=== PATIENT | female | born 1950 | race Caucasian/White ===

== ENCOUNTER 2016-10-28 12:50 | Observation (INO) ==
[2016-10-28] MEDS ORDERED: NS 1,000 ML IV ONE (13:16)
[2016-10-28 14:03] LABS: MANUAL DIFF NEEDED? NO
[2016-10-28 14:07] LABS: ALLEN TEST YES; BE 6.7 mmoll (-3.0-3.0); BLOOD TYPE ARTERIAL; DRAW SITE L RADIAL; METHB 1.6 % (0.0-1.5); O2(CT) 12.8 mL/dL (15.0-23.0); PO2(98.6) 66 mmHg (60-100); SAMPLE BLOOD; SAO2 96.5 % (95.0-100.0); THB 9.7 g/dL (11.5-17.4); pH(98.6) 7.41 (7.35-7.45)
[2016-10-28 14:09] LABS: MODALITY ROOM AIR
[2016-10-28 14:13] LABS: BASO% 0.7 % (0.0-0.8); EOS# 0.57 X1000 (0.0-0.7); EOS% 6.4 % (0.0-10.0); HEMATOCRIT 30.1 % (37.0-47.0); HEMOGLOBIN 9.5 g/dL (12.0-16.0); IMM GRAN# 0.08 X1000 (0.0-0.04); IMM GRAN% 0.9 % (0.0-0.5); LYMPH# 1.71 X1000 (1.2-3.4); LYMPH% 19.2 % (20.5-51.1); MCH 31.6 PG (27-31); MCHC 31.6 g/dL (33-37); MONO# 0.86 X1000 (0.11-0.59); MONO% 9.7 % (1.7-9.3); NEUT% 63.1 % (42.2-75.2); PLT 251 X1000 (130-400); RBC 3.01 XMIL (4.2-5.4)
[2016-10-28 14:15] LABS: PCO2(98.6) 51 mmHg (35-45)
[2016-10-28 14:23] LABS: ALBUMIN 2.8 g/dL (3.5-5.0); CALCIUM 8.5 mg/dL (8.8-10.2); MAGNESIUM 2.1 mg/dL (1.5-2.7); POTASSIUM 3.1 mmol/L (3.5-5.1); TOTAL BILIRUBIN 0.37 mg/dL (0.20-1.00); TOTAL PROTEIN 5.5 g/dL (6.3-8.3)
[2016-10-28 14:26] LABS: INR 1.01; PROTIME 10.6 Seconds (9.2-11.7); PTT 25.2 Seconds (22.0-36.0)
--- NOTE | 2016-10-28 15:28 | Diag Imaging Result Document ---
PROCEDURE NAME: CHEST-PORTABLE - 10/28/2016 PORTABLE CHEST: COMPARISON: 04/29/2013. FINDINGS: Heart size appears the upper range of normal. There is mild prominence of central vascular markings, which appears to be chronic. There is mild subsegmental atelectasis at the left base. The lungs otherwise appear clear. There is no pleural effusion or pneumothorax identified. There are postsurgical changes noted at the junction of the cervical and thoracic spine. IMPRESSION: Upper normal heart size. Mild prominence of central vascular markings, which appears to be chronic. Mild subsegmental atelectasis at left base.
[2016-10-28] MEDS ORDERED: KLOR-CON PO ONE (16:46)
[2016-10-28] MEDS: NS 1,000 ML IV SCH (17:03)
--- NOTE | 2016-10-28 17:12 | PROVIDER DOCUMENTATION ---
This chart was entered by Sally Ovalle Scribe, acting as scribe for Leobardo Harding MD. HPI-Syncope/Dizziness - General Chief Complaint: Weakness Stated Complaint: generalized weakness Time Seen by Provider: 10/28/16 13:04 Source: patient Allergies/Adverse Reactions: Patient Allergies Allergy/AdvReac Type Severity Reaction Status Date / Time cephalexin monohydrate * Allergy RASH Verified 10/28/16 13:15 [From Keflex] - History of Present Illness-Syncope/Dizzy Nature of Presenting Problem: 66 yof presents to ed by ems with complaints of dizziness,pain, and weakness.pt states she began hurting and feeling dizzy this morning and could not manage pain. Ems states she had a post op surgery days ago and b/p low. Prior Episodes: reports: no prior history Onset/Duration: reports: this morning Timing: reports: still present Position/Activity at time of episode: reports: standing Symptoms prior to episode: reports: none Context: reports: felt faint Loss of Consciousness: no loss of consciousness Location of injury. (If syncope resulted in an injury.): reports: none Current Symptoms: reports: weakness, dizzy Recently Seen Here or By Another Healthcare Provider: No - Dizziness Severity in ED: reports: mild Dizziness Related Current/Associated Symptoms: reports: weakness Any recent trauma/injury?: reports: none Modifying Factors: improves with: nothing Patient usually:: reports: walks without assistance Review of Systems - Adult - REVIEW OF SYSTEMS - ADULT Constitutional: reports: fatique. denies: chills, fever Eyes: reports: no symptoms reported Ears, Nose, Mouth & Throat: reports: no symptoms reported Cardiovascular: reports: syncope (near). denies: chest pain, palpitations Respiratory: reports: no symptoms reported Gastrointestinal: denies: abdominal pain, nausea, vomiting Genitourinary: reports: no symptoms reported Musculoskeletal: reports: no symptoms reported Integumentary: reports: no symptoms reported Neurological: reports: dizziness/vertigo, syncope. denies: headache/migraines Psychiatric: reports: no symptoms reported Endocrine: reports: no symptoms reported Hematologic/Lymphatic: reports: no symptoms reported Allergic/Immunologic: reports: no symptoms reported All Other Systems: Reviewed and Negative Past History - Adult - PAST MEDICAL HISTORY-ADULT Review of Records: reports: Nursing Assessment Review, Medications Reviewed Cardiovascular: reports: HTN - PRIOR SURGERIES/PROCEDURES Surgical/Procedure History: reports: other (spinal) - IMMUNIZATION STATUS Childhood Immunizations: See Nurse Assessment Flu Vaccine: See Nurse Assessment - FAMILY HISTORY Family History: reviewed, not pertinent - SOCIAL HISTORY Smoking: non-smoker Living Situation: family Physical Exam-General - PHYSICAL EXAM-ADULT Initial Vital Signs Reviewed: Yes - CONSTITUTIONAL General Appearance: appears well, alert, no apparent distress - EYES Eyes: PERRL/EOMI, pink conjunctivae, fundi clear, no AV nicking - HEAD, EARS, NOSE, MOUTH & THROAT HENMT: normocephalic/atraumatic, moist mucous membranes, normal ENT inspection, TMs normal - RESPIRATORY Respiratory: chest non-tender, lungs clear, normal breath sounds, no pleuratic chest pain, no respiratory distress - CARDIOVASCULAR Cardiovascular: normal peripheral pulses, regular rate, rhythm, no edema, no gallop, no JVD - GASTROINTESTINAL (ABDOMEN) Abdominal Exam: normal bowel sounds, non tender, soft, no organomegaly, no pulsatile mass - LYMPHATIC Lymphatic: no adenopathy - MUSCULOSKELETAL Extremity: normal range of motion, non-tender, normal inspection, no pedal edema , no calf tenderness, normal capillary refill - SKIN Integumentary: normal color, normal turgor, warm/dry - NEUROLOGIC Neurologic: shop lead II-XII nml as tested, grossly normal, no motor/sensory deficits - PSYCHIATRIC Psych/Mental Status: normal mood/affect, normal thought content, normal thought process, oriented x 3 Progress - PLAN OF CARE/RESULTS Progress/Plan/Lab Results: Vital Signs - 8 hr 10/28/16 13:06 10/28/16 14:18 10/28/16 16:18 Temperature 98.3 F Pulse Rate 63 73 Respiratory Rate 17 19 Blood Pressure 82/50 95/56 97/58 O2 Sat by Pulse Oximetry 90 L 93 L Laboratory Results - last 24 hr 10/28/16 10/28/16 10/28/16 13:39 13:39 13:39 WBC 8.91 RBC 3.01 L Hgb 9.5 L Hct 30.1 L MCV 100.0 H MCH 31.6 H MCHC 31.6 L RDW Std Deviation 14.0 Plt Count 251 MPV 11.0 H Immature Gran % (Auto) 0.9 H Neut % (Auto) 63.1 Lymph % (Auto) 19.2 L [place] % (Auto) 9.7 H Eos % (Auto) 6.4 Baso % (Auto) 0.7 Immature Gran # (Auto) 0.08 H Neut # (Auto) 5.63 Lymph # (Auto) 1.71 [place] # (Auto) 0.86 H Eos # (Auto) 0.57 Baso # (Auto) 0.06 PT INR PTT (Actin FS) D-Dimer 1.13 H Specimen Type Sample Site pH pCO2 pO2 HCO3 Base Excess Oxyhemoglobin ABG O2 Sat (Calculated) ABG O2 Saturation ABG Carboxyhemoglobin ABG Methemoglobin Kirit Test Total Hemoglobin Lactate Blood Gas Modality Sodium 135 L Potassium 3.1 L Chloride 96 L Carbon Dioxide 28 Anion Gap 11 BUN 15 Creatinine 1.3 H Estimated GFR/1.73 m2 41 BUN/Creatinine Ratio 12 Glucose 108 H Calculated Osmolality 271 Calcium 8.5 L Magnesium 2.1 Total Bilirubin 0.37 AST 27 ALT 17 Alkaline Phosphatase 44 Creatine Kinase 112 Troponin T Uan-B-Cqjemazzmog Pept Total Protein 5.5 L Albumin 2.8 L Globulin 2.7 Albumin/Globulin Ratio 1.0 10/28/16 10/28/16 10/28/16 13:39 13:39 13:39 WBC RBC Hgb Hct MCV MCH MCHC RDW Std Deviation Plt Count MPV Immature Gran % (Auto) Neut % (Auto) Lymph % (Auto) [place] % (Auto) Eos % (Auto) Baso % (Auto) Immature Gran # (Auto) Neut # (Auto) Lymph # (Auto) [place] # (Auto) Eos # (Auto) Baso # (Auto) PT 10.6 INR 1.01 PTT (Actin FS) 25.2 D-Dimer Specimen Type Sample Site pH pCO2 pO2 HCO3 Base Excess Oxyhemoglobin ABG O2 Sat (Calculated) ABG O2 Saturation ABG Carboxyhemoglobin ABG Methemoglobin Kirit Test Total Hemoglobin Lactate Blood Gas Modality Sodium Potassium Chloride Carbon Dioxide Anion Gap BUN Creatinine Estimated GFR/1.73 m2 BUN/Creatinine Ratio Glucose Calculated Osmolality Calcium Magnesium Total Bilirubin AST ALT Alkaline Phosphatase Creatine Kinase Troponin T < 0.010 Yjn-G-Tvxzxpomubd Pept 218 Total Protein Albumin Globulin Albumin/Globulin Ratio 10/28/16 13:55 WBC RBC Hgb Hct MCV MCH MCHC RDW Std Deviation Plt Count MPV Immature Gran % (Auto) Neut % (Auto) Lymph % (Auto) La[place] % (Auto) Eos % (Auto) Baso % (Auto) Immature Gran # (Auto) Neut # (Auto) Lymph # (Auto) [place] # (Auto) Eos # (Auto) Baso # (Auto) PT INR PTT (Actin FS) D-Dimer Specimen Type ARTERIAL Sample Site L RADIAL pH 7.41 pCO2 51 H* pO2 66 HCO3 30.1 H Base Excess 6.7 H Oxyhemoglobin 93.5 L ABG O2 Sat (Calculated) 12.8 L ABG O2 Saturation 96.5 ABG Carboxyhemoglobin 1.60 ABG Methemoglobin 1.6 H Kirit Test YES Total Hemoglobin 9.7 L Lactate 0.70 Blood Gas Modality ROOM AIR Sodium Potassium Chloride Carbon Dioxide Anion Gap BUN Creatinine Estimated GFR/1.73 m2 BUN/Creatinine Ratio Glucose Calculated Osmolality Calcium Magnesium Total Bilirubin AST ALT Alkaline Phosphatase Creatine Kinase Troponin T Ryv-L-Sugmridhdpl Pept Total Protein Albumin Globulin Albumin/Globulin Ratio Orders Category Date Time Status Cardiac Monitoring DIRECTED Care 10/28/16 13:16 Active Saline Loc NOW Care 10/28/16 13:16 Active CHEST-PORTABLE [RAD] Stat Exams 10/28/16 13:16 Completed ABG [RESP] Routine Lab 10/28/16 13:55 Completed BLOOD CULTURE [BLDCUL] Stat Lab 10/28/16 13:39 Results CBC WITH ELECTRONIC DIFF [HEME] Stat Lab 10/28/16 13:39 Completed CK PROFILE [SP CHEM] Stat Lab 10/28/16 13:39 Completed COMPREHENSIVE METABOLIC PANEL [CHEM] Stat Lab 10/28/16 13:39 Completed D-DIMER [CHEM] Stat Lab 10/28/16 13:39 Completed MAGNESIUM [CHEM] Stat Lab 10/28/16 13:39 Completed PRO B-NATRIURETIC PEPTIDE Stat Lab 10/28/16 13:39 Completed PROTIME WITH INR [COAG] Stat Lab 10/28/16 13:39 Completed PTT [COAG] Stat Lab 10/28/16 13:39 Completed TROPONIN T Stat Lab 10/28/16 13:39 Completed UA NIMS W/REFLEX CULT [URINALYSIS] Stat Lab 10/28/16 13:16 Uncollected 0.9% Sodium Chloride Inj [Ns] 1,000 ml Med 10/28/16 13:16 Discontinued IV 999 mls/hr Potassium Chloride E.r. [Klor-Con] Med 10/28/16 16:46 Discontinued 40 meq PO NOW ONE EKG [EKG] Stat Ther 10/28/16 13:11 Ordered Venous U/S Bilateral Legs Stat Ther 10/28/16 16:46 Ordered Result Diagrams: 10/28/16 13:39 10/28/16 13:39 - REASSESSMENT Reassessment #1 Time Reassessed: 17:10 Status: improving (Pt is doing much better. BP=90s/60s. Pt has been taking her BP meds after the surgery, even though she has not been eating and drinking much. Will admit to Dr. Salinas) Departure - Departure Time of Disposition Decision: 17:11 DIAGNOSIS: Hypotension Qualifiers: Hypotension type: unspecified hypotension type Qualified Code(s): I95.9 - Hypotension, unspecified Post-operative complication Qualifiers: Surgical complication system/body Area: circulatory system Surgical complication type: unspecified Disposition: ADMITTED INPATIENT 09 Certified Medical Emergency: Emergent Condition: Stable Referrals and Follow-Ups: George Roca MD [Primary Care Provider] - This chart was documented by the indicated scribe, (Sally Ovalle Scribe) and accurately reflects the services I performed and decisions made by , Leobardo Harding MD, as attested by the provider's signature.
[2016-10-28 17:27] LABS: URINE CULTURE NEEDED? NO; URINE MICRO REVIEW NEEDED? NO; URINE SOURCE CATH
[2016-10-28 17:30] LABS: BILIRUBIN URINE NEGATIVE (NEGATIVE); BLOOD URINE NEGATIVE (NEGATIVE); COLOR YELLOW; GLUCOSE URINE NEGATIVE (NEGATIVE); LEUKOCYTES URINE NEGATIVE (NEGATIVE); NITRITE URINE NEGATIVE (NEGATIVE); PROTEIN URINE NEGATIVE (NEGATIVE); SP GRAVITY URINE 1.007; TURBIDITY URINE CLEAR (CLEAR); UR EPITHELIAL CELLS <10 /HPF (<10); URINE BACTERIA NEGATIVE /HPF; URINE RBC <10 /HPF (<10); URINE WBC <10 /HPF (<10); UROBILINOGEN URINE NORMAL (NORMAL)
[2016-10-28] MEDS ORDERED: ZOFRAN IV PRN (17:48)
[2016-10-28] MEDS: LOVENOX SUBQ SCH (19:04)
--- NOTE | 2016-10-28 19:13 | HISTORY AND PHYSICAL ---
PRIMARY CARE PHYSICIAN: Dr. George Roca. PRIMARY JUNIOR ELECTRICAL ENGINEER: Dr. Alonzo Moore. PRIMARY NEUROSURGEON: Dr. Ku from [facility]. CHIEF COMPLAINT: Generalized weakness and near-syncope. HISTORY OF PRESENT ILLNESS: This is a 66-year-old female with past medical history of hypertension, neck pain with recent surgery who was brought to the emergency department because of an episode of generalized weakness and also near-syncope. at bedside who provides most of the story. The patient had a recent neck fusion and a left carpal tunnel syndrome released surgically last week and she was discharged from [facility] on . Patient actually was doing fine according to her and last night and she took all of her blood pressure medication as usual. This morning around noon, her noticed her being less responsive. He started slapping her gently and patient was sleepy, so that happened for approximately 1 minute, maximum 2. Patient checked her blood pressure and at that time it read 50/30. was trying to help her to be more acting and continued tapping her face and finally because he was persistent in that situation, she called an ambulance and the patient was brought here to the emergency department. Here, she was found a little bit lethargic with blood pressure of 82/50. Apparently there is no sign of infection. Patient was not complaining of any cough. She denies any urinary tract infection symptoms. Apparently there were no major changes to her current medication and the pill that this patient took 1 hour before this episode happen is hydrocodone 7.5 mg. Patient now is being admitted for further evaluation and treatment as an observation for low blood pressure. She is also complaining of mild discomfort in the anterior chest wall, but she reported that this is something chronic that she attributes to her stay at [facility]. She did not describe any truly chest pain or chest discomfort. She denies any nausea and vomiting. PAST MEDICAL HISTORY: 1. Hypertension. 2. Neck pain. 3. Generalized osteoarthritis. 4. Polymyalgia rheumatica. Dr. Eisenberg is her primary workers compensation consultant and she is on chronic steroid therapy. 5. Aortic valve regurgitation. 6. Lumbar disk herniation. PAST SURGICAL HISTORY: 1. Cervical fusion x2. 2. Lumbar point fusion x1. 3. Carpal tunnel syndrome surgical repair in the left side. 4. Tubal ligation. 5. Cataract surgery. ALLERGIES: Patient is allergic to Keflex. SOCIAL HISTORY: Patient lives with . Denies smoking. She quit a few years ago. She denies drinking alcohol, just only socially. She does not use any illicit drugs. REVIEW OF SYSTEMS: 11 system reviewed and although the patient was not completely awake to provide more information, almost all symptoms are related to H P. PHYSICAL EXAMINATION: VITALS: Temperature 98.3 degrees, heart rate 63, respiratory rate 17, blood pressure 82/50. O2 saturation 3% on 2 L nasal cannula. GENERAL EXAMINATION: This is a 66-year-old chronically ill-looking female lying in bed, in no acute distress, using an [place] collar. HEENT: Head is normocephalic, atraumatic. Mucous membranes moist. NECK: Supple. The patient is using an [place] collar. No lymphadenopathy grossly or thyromegaly. CARDIOVASCULAR: S1, S2 heard. No murmurs, gallops, or rubs. Regular rate and rhythm. RESPIRATORY: Clear bilaterally to auscultation. No work of breathing or using accessory muscles. ABDOMEN: Soft, nontender to palpation. Bowel sounds present. No organomegaly. EXTREMITIES: Mild pedal edema, 1+ in both lower extremities. Peripheral pulses present in both legs. NEUROLOGICAL: Patient is a little bit sleepy, but easily arousable. Moves 4 extremities. LABORATORY DATA: Hemoglobin 9.5, hematocrit 30.1, platelets 251,000. ABG shows pH 7.41, PCO2 51. Potassium 3.1, creatinine 1.3. ASSESSMENT AND PLAN: 1. Near-syncope. 2. Chest discomfort. 3. Status post cervical fusion with [place] collar placed. 4. Mild kidney insufficiency. 5. Hypotension. 6. Aortic regurgitation. PLAN: 1. The patient is going to be admitted to the hospital as an admission because of low blood pressure. At this time, we do not know why this blood pressure has dropped. Of course, we are going to hold all antihypertensive medications here. Because she was complaining of vague chest discomfort, we are going to check enzymes, troponin 3 times. Also, we are going to restart all her home medications. 2. Further recommendations to follow according to the clinical situation with the patient. cc: Jt Cook MD
[2016-10-28] MEDS: NORCO-7.5 PO PRN (20:30)
[2016-10-28] MEDS: ROBAXIN PO SCH (20:31)
[2016-10-28] MEDS ORDERED: NEURONTIN PO SCH (21:00)
[2016-10-28] MEDS: NEURONTIN PO SCH (21:30)
[2016-10-28] MEDS: CRESTOR PO SCH (21:30)
[2016-10-28] MEDS: MIRAPEX PO SCH (21:40)
[2016-10-29] MEDS: NS 1,000 ML IV SCH ×4 (01:51→22:02)
[2016-10-29] MEDS: NORCO-7.5 PO PRN ×3 (05:26→22:10)
--- NOTE | 2016-10-29 05:55 | EKG Report ---
Test Performed on : 10/28/2016 1:16:31 PM Test Reason : weakness Blood Pressure : / mmHG Vent. Rate : 064 BPM Atrial Rate : 064 BPM P-R Int : 152 ms QRS Dur : 078 ms QT Int : 448 ms P-R-T Axes : 049 -14 027 degrees QTc Int : 462 ms Normal sinus rhythm. Low voltage QRS Nonspecific ST abnormality Abnormal ECG When compared with ECG of 25-JAN-2011 16:18, Vent. rate has decreased BY 36 BPM Unconfirmed Result
[2016-10-29] MEDS: PRILOSEC PO SCH (06:01)
[2016-10-29 07:12] LABS: MANUAL DIFF NEEDED? NO
[2016-10-29 07:19] LABS: BASO% 0.5 % (0.0-0.8); EOS# 0.58 X1000 (0.0-0.7); EOS% 6.9 % (0.0-10.0); HEMATOCRIT 33.7 % (37.0-47.0); HEMOGLOBIN 10.5 g/dL (12.0-16.0); IMM GRAN# 0.05 X1000 (0.0-0.04); IMM GRAN% 0.6 % (0.0-0.5); LYMPH# 1.35 X1000 (1.2-3.4); MCH 31.3 PG (27-31); MCHC 31.2 g/dL (33-37); MCV 100.3 FL (81-99); MONO# 0.92 X1000 (0.11-0.59); MONO% 10.9 % (1.7-9.3); MPV 10.8 FL (7.4-10.4); NEUT% 65.1 % (42.2-75.2); PLT 260 X1000 (130-400); RBC 3.36 XMIL (4.2-5.4)
[2016-10-29 07:43] LABS: CALCIUM 8.4 mg/dL (8.8-10.2); POTASSIUM 3.8 mmol/L (3.5-5.1)
[2016-10-29] MEDS: ASPIRIN EC PO SCH (09:21)
[2016-10-29] MEDS: ROBAXIN PO SCH ×2 (09:21→22:00)
[2016-10-29] MEDS: NEURONTIN PO SCH ×2 (09:21→22:01)
[2016-10-29] MEDS: MIRAPEX PO SCH ×2 (09:21→22:00)
[2016-10-29] MEDS: CELEXA PO SCH (09:22)
[2016-10-29] MEDS: PREDNISONE PO SCH (09:22)
--- NOTE | 2016-10-29 16:22 | PROGRESS NOTE ---
DATE: 10/29/2016 SUBJECTIVE: The patient reports feeling a little bit better but not completely back to her baseline. Denies any dizziness. Denies any headache or any nausea. OBJECTIVE: Vital Signs: Temperature 99.3 degrees, heart rate 86, respiratory rate 20, blood pressure 150/59, O2 saturation 98% on room air. General Examination: This is a chronically ill- looking, 66-year-old female lying in bed, in no acute distress. Wearing an [place] collar. HEENT: Head is normocephalic, atraumatic. Patient wearing a rigid cassie. No lymphadenopathy or thyromegaly noted. Cardiovascular: S1, S2 heard. No murmurs, gallops, or rubs. Regular rate and rhythm. Respiratory: Clear bilaterally to auscultation. No work of breathing or using accessory muscles. Abdomen: Soft, nontender to palpation. Bowel sounds present. No organomegaly. Extremities: Mild pitting edema 1+ in both lower extremities. Peripheral pulses present in both legs. Neurological: Patient is more alert and awake today. Moves 4 extremities. LABORATORY DATA: White cell count 8.46, hemoglobin 10.5, hematocrit 33.7, platelets 262,000. BMP unremarkable except mild elevation of creatinine 1.6. ASSESSMENT AND PLAN: 1. Near syncope. 2. Status post cervical fusion with [place] collar in place. 3. Acute kidney injury. 4. Hypertension. 5. Aortic regurgitation. 6. Pulmonary embolism suspected. PLAN: Patient was admitted to the hospital yesterday. She was just recently discharged 3 days ago from [facility] for neck fusion surgery and right carpal tunnel syndrome that was fixed surgically. The patient reports that she does not recall the episode but according to the was feeling dizzy and apparently she was less responsive so she was brought to the hospital and blood pressure at home before being brought to the hospital was found to be 50/30. Apparently, this patient, I am not sure if she was taking the correct doses of her blood pressure medications but the respirations as we mentioned were low so we started IV fluids on this patient. Also, because this patient was not tomorrow but in the next few days a V/Q scan will be ordered for possible PE. If the patient continues to improve clinically and V/Q scan is negative for PE, we are going to discharge this patient. We got a call from Ms. Ku nurse-practitioner from Neurosurgery and they are okay to let this patient remove the collar have a bath and they will check on the patient tomorrow. cc: Jt Cook MD
[2016-10-29] MEDS: LOVENOX SUBQ SCH (18:57)
--- NOTE | 2016-10-29 19:09 | Diag Imaging Result Document ---
PROCEDURE NAME: LUNG SCAN / VQ - 10/29/2016 STUDY: Ventilation perfusion nuclear medicine study. TECHNIQUE: 38 millicuries of DTPA used for ventilation imaging, 5.7 millicuries MAA administered intravenously for the perfusion images. Recent plain film used correlation. There are no wedge-shaped perfusion defects. Ventilation images are suboptimal, although there are no ventilation perfusion mismatches. IMPRESSION: No pulmonary emboli identified.
[2016-10-29] MEDS: CRESTOR PO SCH (22:01)
[2016-10-30] MEDS: NORCO-7.5 PO PRN ×2 (06:24→14:28)
[2016-10-30] MEDS: NS 1,000 ML IV SCH ×2 (06:24→12:27)
[2016-10-30] MEDS: PRILOSEC PO SCH (06:24)
[2016-10-30 06:29] LABS: MANUAL DIFF NEEDED? NO
[2016-10-30 06:36] LABS: BASO% 0.7 % (0.0-0.8); EOS# 0.32 X1000 (0.0-0.7); EOS% 4.2 % (0.0-10.0); HEMATOCRIT 33.5 % (37.0-47.0); HEMOGLOBIN 10.4 g/dL (12.0-16.0); IMM GRAN# 0.03 X1000 (0.0-0.04); IMM GRAN% 0.4 % (0.0-0.5); LYMPH# 2.04 X1000 (1.2-3.4); LYMPH% 26.7 % (20.5-51.1); MCH 31.3 PG (27-31); MCV 100.9 FL (81-99); MONO# 0.71 X1000 (0.11-0.59); MONO% 9.3 % (1.7-9.3); MPV 10.9 FL (7.4-10.4); NEUT% 58.7 % (42.2-75.2); PLT 279 X1000 (130-400); RBC 3.32 XMIL (4.2-5.4)
[2016-10-30 06:50] LABS: CALCIUM 8.1 mg/dL (8.8-10.2); POTASSIUM 3.6 mmol/L (3.5-5.1)
[2016-10-30] MEDS: MIRAPEX PO SCH (09:52)
[2016-10-30] MEDS: PREDNISONE PO SCH (09:52)
[2016-10-30] MEDS: NEURONTIN PO SCH (09:52)
[2016-10-30] MEDS: ROBAXIN PO SCH (09:52)
[2016-10-30] MEDS: ASPIRIN EC PO SCH (09:53)
[2016-10-30] MEDS: CELEXA PO SCH (09:53)
[2016-10-30] MEDS ORDERED: TOPROL XL PO SCH (12:15)
[2016-10-30] MEDS ORDERED: HYZAAR 50/12.5 MG PO SCH (12:15)
--- NOTE | 2016-10-30 13:19 | ECHO REPORT ---
ORDER DATE: 10/28/2016 INDICATION: Hypertension, chest discomfort, weakness, syncope. FINDINGS: 1. The right atrium appears normal size at 3.1 cm. 2. There is mild tricuspid regurgitation. RV systolic pressure of 42. 3. Normal RV size and systolic function. 4. No significant pulmonic insufficiency. 5. Normal left atrial size at 3.9 cm. 6. No mitral valve prolapse. Trace mitral regurgitation. 7. Normal LV size, end-diastolic dimension of 4.8. Suggestion of mild left ventricular hypertrophy. Posterior and interventricular septal wall thickness 1.2 and 1.1 cm respectively. Normal LV systolic function. Estimated EF is around 55%. Normal wall motion. 8. The aortic valve opens well. There is mild aortic insufficiency. The valve is trileaflet. 9. The aorta appears normal in visualized segments. 10. No pericardial effusion seen. cc: MD Jt Woodall MD
[2016-10-30 15:35] VITALS: BP 158/69
[2016-10-31] MEDS ORDERED: ADALAT CC PO SCH (09:00)
--- NOTE | 2016-10-31 15:16 | DISCHARGE SUMMARY ---
ADMISSION DATE: 10/28/2016 DISCHARGE DATE: 10/30/2016 CONSULTATIONS: None. PERTINENT PROCEDURES: 1. Echocardiogram showing EF of 55% with normal wall motion. 2. Chest x-ray showed upper normal size heart, mild prominence of central vascular markings which appear to be chronic, mild segmental atelectasis at the left base. 3. V/Q scan showed no pulmonary emboli. DISCHARGE DIAGNOSES: 1. Near syncope. The patient was recently discharged from [facility] for neck fusion surgery and right carpal tunnel syndrome that was fixed surgically. The patient's echocardiogram was normal. Her V/Q scan was negative for any PE. The patient has not had any more near syncope episodes since admission. The patient was also ambulated to check her room air saturations; they were normal. The patient has been advised to use her walker to get around and to change positions slowly. 2. Status post cervical fusion with [place] collar in place. She has been advised to follow up with the CONTINUOUS DRIER OPERATOR with Dr. Mercado, from Neurosurgery. 3. Acute kidney injury secondary to the patient's hypotension. This has improved with IV fluids. 4. Hypotension in a patient with normally hypertensive. Blood pressures at home on the day of her admission were 50/30, unsure if patient was taking correct doses of her blood pressure medicine; however, again, she has trended up to being hypertensive. She has been restarted back on her home medications. 5. Aortic regurgitation. Aware. 6. Pulmonary embolism ruled out with V/Q scan. HOSPITAL COURSE: Ms. Blount is a 66-year-old female with a past medical history of hypertension, neck pain with recent cervical fusion as well as carpal tunnel syndrome surgical repair on the left side, hypertension, neck pain, general osteoarthritis, polymyalgia rheumatica on chronic steroid therapy, aortica valve regurgitation, lumbar disc herniation. The patient was brought to the ED because of generalized weakness and near syncope. Her is here at the bedside and at the time of her admission provided most of her history. The patient recently had a neck fusion and left carpal tunnel syndrome release surgically last week and discharged from [facility] on . The patient was doing fine according to the . She took her blood pressure medications as usual, then around noon the patient's noticed her being less responsive. He said he started slapping her gently, she was sleepy. He checked her blood pressure and it was 50/30. He called the ambulance. She was brought to the ED where she was found to be lethargic with a blood pressure of 82/50. No signs of infection. Not complaining of any cough. No urinary tract infection symptom. No major changes in current medications other than a pill that she took an hour before the episode happened, which was hydrocodone 7.5. The patient was admitted for near syncope, started on IV fluids. Then she started complaining of some vague chest discomfort. Serial troponins were checked, which were negative. Echocardiogram revealed an EF of 55% with normal wall motion. A V/Q scan was also ordered to rule out PE. There was no pulmonary emboli identified. She also had an acute kidney injury; this is improved with IV fluids. Clinically, the patient has improved. She has been ambulated to check for her room air saturations. They have remained normal. The patient has been advised to continue with her [place] collar and to follow up with her CONTINUOUS DRIER OPERATOR with Dr. Mercado, her neurosurgeon to see when shecan take the C-collar off. She has been advised to continue to use her walker, to change positions slowly, and to be careful when taking pain medications. The patient's blood pressure has trended up into the 180s. She has been reinitiated back on her home medications. Dr. Duncan has assessed the patient. He feels that she is appropriate for discharge today. DISCHARGE VITAL SIGNS: Temperature is 98.1, heart rate 71, respirations 18, blood pressure is 153/70, O2 is 95% on room air. DISCHARGE DIET: Regular. DISCHARGE MEDICATIONS: 1. Aspirin 81 mg p.o. daily. 2. Lasix 40 mg p.o. daily. 3. Neurontin 600 mg p.o. b.i.d. 4. [place] 7.5/325 one each p.o. q.8h. p.r.n. 5. Losartan/hydrochlorothiazide 1 each p.o. daily. 6. Mobic 7.5 mg p.o. daily. 7. Robaxin 750 mg p.o. b.i.d. 8. Toprol XL 100 mg p.o. daily. 9. Procardia XL 50 mg p.o. daily. 10. Mirapex 0.125 mg p.o. b.i.d. 11. Prednisone 10 mg p.o. daily. 12.Crestor 20 mg p.o. at bedtime. 13. Dyazide 37.5 25 one each p.o. daily. FOLLOWUP: The patient is being discharged home with family. She can follow up with her primary care physician, Dr. George Roca, in 1 week. The patient will return to the ED if any worsening of her symptoms. DISCHARGE TIME: 30 minutes. Dictated by ALESSANDRO Zepeda for Ace Moses MD cc: MD Ace Carrera MD MTDD
--- NOTE | 2016-11-02 04:03 | Extremity Venous Study ---
PROCEDURE NAME: Venous U/S Bilateral Legs - 10/28/2016 STUDY: Bilateral lower extremity venous duplex study. REFERRING PHYSICIAN: Leobardo Harding MD READING PHYSICIAN: Derian Espinal MD TYPIST: [place] INDICATION: Shortness of breath, elevated D-dimer. Patient is postop neck surgery and carpal tunnel surgery. FINDINGS: The deep and superficial veins of both lower extremities were imaged throughout their course. All are compressible with forward flow. No thrombus is appreciated. Reflux is noted in the left common femoral and greater saphenous veins. INTERPRETATION: No evidence of deep or superficial venous thrombosis in either lower extremity and reflux disease as described above on the left. cc: Derian Espinal MD
== END 2016-10-30 17:30 | disposition home or self-care (01) ==
LOC: ED 12:50 → SUATTDRO 23:48 → INTOOBSV 23:48 → 3N 23:48
PROVIDERS: ATTEND Internal Medicine

== ENCOUNTER 2017-03-15 11:00 | Inpatient (IN) ==
[2017-03-15 12:36] LABS: MANUAL DIFF NEEDED? NO
[2017-03-15 12:37] LABS: URINE CULTURE NEEDED? NO; URINE MICRO REVIEW NEEDED? NO; URINE SOURCE CLEAN CATCH
[2017-03-15 12:41] LABS: BILIRUBIN URINE NEGATIVE (NEGATIVE); BLOOD URINE MODERATE (NEGATIVE); COLOR YELLOW; GLUCOSE URINE NEGATIVE (NEGATIVE); LEUKOCYTES URINE NEGATIVE (NEGATIVE); NITRITE URINE NEGATIVE (NEGATIVE); PH URINE 6.5; PROTEIN URINE 70 mg/dL (NEGATIVE); TURBIDITY URINE HAZY (CLEAR); UR EPITHELIAL CELLS >10 /HPF (<10); URINE BACTERIA NEGATIVE /HPF; URINE RBC <10 /HPF (<10); URINE WBC <10 /HPF (<10); UROBILINOGEN URINE NORMAL (NORMAL)
[2017-03-15 12:43] LABS: BASO% 0.6 % (0.0-0.8); EOS% 2.4 % (0.0-10.0); HEMATOCRIT 37.1 % (37.0-47.0); HEMOGLOBIN 11.9 g/dL (12.0-16.0); IMM GRAN# 0.02 X1000 (0.0-0.04); IMM GRAN% 0.2 % (0.0-0.5); LYMPH# 1.47 X1000 (1.2-3.4); LYMPH% 17.5 % (20.5-51.1); MCH 30.3 PG (27-31); MCHC 32.1 g/dL (33-37); MCV 94.4 FL (81-99); MONO% 7.1 % (1.7-9.3); MPV 11.3 FL (7.4-10.4); NEUT% 72.2 % (42.2-75.2); PLT 199 X1000 (130-400); RBC 3.93 XMIL (4.2-5.4)
--- NOTE | 2017-03-15 12:47 | ED EKG INTERP ---
This chart was entered by Amy Contreras Scribe, acting as scribe for Leobardo Harding MD. EKG Interpretation - EKG Time of EKG reading by physician:: 11:57 EKG Read and Signed by:: Leobardo Harding EKG Interpretation (*Must complete 3 of following elements*): Abnormal Rate: 63 (nonspecific st abnormality) Rhythm: NSR Attestation - Physician/ CAPRICE Attestation Patient care was provided by Advanced Practice Provider:: No The physician spent face to face time with patient:: Yes Advanced Practice Provider documentation review:: Supervising physician onsite and consulted in the evaluation and care of this patient. The physician did have a face to face encounter with the patient. This chart was documented by the indicated scribe, (Amy Contreras Scribe) and accurately reflects the services I performed and decisions made by meMehdi Wenli X, MD, as attested by the provider's signature.
[2017-03-15 12:54] LABS: INR 0.98; PROTIME 10.3 Seconds (9.2-11.7); PTT 24.6 Seconds (22.0-36.0)
[2017-03-15 13:47] LABS: ALBUMIN 4.1 g/dL (3.5-5.0); CALCIUM 9.3 mg/dL (8.8-10.2); MAGNESIUM 2.6 mg/dL (1.5-2.7); POTASSIUM 3.2 mmol/L (3.5-5.1); TOTAL BILIRUBIN 0.24 mg/dL (0.20-1.00); TOTAL PROTEIN 7.3 g/dL (6.3-8.3)
--- NOTE | 2017-03-15 13:50 | EKG Report ---
Test Performed on : 03/15/2017 11:57:09 AM Test Reason : Chest Pain Blood Pressure : / mmHG Vent. Rate : 063 BPM Atrial Rate : 063 BPM P-R Int : 174 ms QRS Dur : 088 ms QT Int : 452 ms P-R-T Axes : 067 -06 039 degrees QTc Int : 462 ms Normal sinus rhythm. Nonspecific ST abnormality Abnormal ECG When compared with ECG of 28-OCT-2016 13:16, No significant change was found Unconfirmed Result
--- NOTE | 2017-03-15 14:19 | PROVIDER DOCUMENTATION ---
HPI-General Adult - General Chief Complaint: Abnormal Lab[s] Stated Complaint: ABNORMAL LABS Time Seen by Provider: 03/15/17 13:42 Source: patient, family Allergies/Adverse Reactions: Patient Allergies Allergy/AdvReac Type Severity Reaction Status Date / Time cephalexin monohydrate * Allergy RASH Verified 10/28/16 13:15 [From Keflex] Home Medications: Home Medication List Medication Instructions Recorded Confirmed Last Taken Type Aspirin [Aspirin EC] 81 mg PO DAILY 10/28/16 10/28/16 10/27/16 History Citalopram [Celexa] 40 mg PO DAILY 10/28/16 10/28/16 10/27/16 History Gabapentin [Neurontin] 600 mg PO BID 10/28/16 10/28/16 10/28/16 11:00 History Hydrocodone/APAP 7.5 mg/325 mg 1 each PO Q8HR PRN 10/28/16 10/28/16 10/28/16 11: 00 History [[place]-7.5] Losartan/Hydrochlorothiazide 1 each PO DAILY 10/28/16 10/28/16 10/27/16 History [Hyzaar 100-25 Tablet] Meloxicam [Mobic] 7.5 mg PO DAILY 10/28/16 10/28/16 10/27/16 History Methocarbamol [Robaxin-750] 750 mg PO BID 10/28/16 10/28/16 10/28/16 11:00 History Metoprolol Succinate E.r. [Toprol 100 mg PO DAILY 10/28/16 10/28/16 10/27/16 History Xl] Nifedipine [Procardia Xl] 60 mg PO DAILY 10/28/16 10/28/16 10/27/16 History Pramipexole Di-HCl [Mirapex] 0.125 mg PO BID 10/28/16 10/28/16 10/27/16 History Prednisone 10 mg PO DAILY 10/28/16 10/28/16 10/27/16 History ROSUVAstatin [Crestor] 20 mg PO QHS 10/28/16 10/28/16 10/27/16 History - History of Present Illness -Gen Adult Nature of Presenting Problems: 67 y.o female with PMH of mod OA, HTN, recent spine surgery, UTI who is sent by PMD for abnormal kidney labs. Pt reports having generalized weakness, confusion , intermittent dyspnea, increase edema in the lower extremities for about 1 week. She denies chest pain, palpitations and GI problems. Pt reports getting over 3 UTIs. She recently completed a course of bactrim about 4 days ago. She denies any urinary frequency, urgency, dysuria, change in urinary output or color. Pt reports chronic back pain associated with her hx of spinal surgery. Her pain today is the same as baseline. Location of Pain/Injury: reports: back Pain Radiation: reports: no radiation Severity: reports: moderate Timing: reports: intermittent Modifying Factors: improves with: analgesics Associated Symptoms: reports: fatigue Similar Symptoms Previously?: Yes (hx of severe dehydration after surgery) Recently seen or treated by another doctor?: Yes (for UTI) Review of Systems - Adult - REVIEW OF SYSTEMS - ADULT Constitutional: reports: no symptoms reported Eyes: reports: no symptoms reported Ears, Nose, Mouth & Throat: reports: no symptoms reported Cardiovascular: reports: no symptoms reported Respiratory: reports: shortness of breath (occasional) Gastrointestinal: reports: no symptoms reported Genitourinary: reports: flank pain Musculoskeletal: reports: joint pain Integumentary: reports: no symptoms reported Neurological: reports: no symptoms reported Psychiatric: reports: no symptoms reported Endocrine: reports: no symptoms reported Hematologic/Lymphatic: reports: no symptoms reported Allergic/Immunologic: reports: no symptoms reported All Other Systems: Reviewed and Negative Past History - Adult - PAST MEDICAL HISTORY-ADULT Review of Records: reports: Old Records Reviewed Cardiovascular: reports: HTN Respiratory: reports: denies history Gastrointestinal: reports: denies history Musculoskeletal: reports: arthritis Psychiatric: reports: anxiety Endocrine/Immune: reports: denies history - PRIOR SURGERIES/PROCEDURES Surgical/Procedure History: reports: recent surgery (spinal fusion, carpal tunnel surgery), other (spinal) - IMMUNIZATION STATUS Childhood Immunizations: See Nurse Assessment Flu Vaccine: See Nurse Assessment - FAMILY HISTORY Family History: reviewed, not pertinent - SOCIAL HISTORY Smoking: denies Substance Use: none/never Physical Exam-General - PHYSICAL EXAM-ADULT Initial Vital Signs Reviewed: Yes - CONSTITUTIONAL General Appearance: alert, no apparent distress - EYES Eyes: PERRL/EOMI, pink conjunctivae - HEAD, EARS, NOSE, MOUTH & THROAT HENMT: normocephalic/atraumatic, moist mucous membranes, pharynx normal - NECK Neck: non-tender, supple - RESPIRATORY Respiratory: chest non-tender, lungs clear, normal breath sounds, no respiratory distress - GASTROINTESTINAL (ABDOMEN) Abdominal Exam: normal bowel sounds, non tender, no organomegaly, other ( central obesity) - MUSCULOSKELETAL Back Exam: no CVA tenderness, other (healed surgical scars lower cervical/upper thoracic and in lumbar regions) Extremity: pedal edema (+3 pitting edema to upper [place]) Progress - PLAN OF CARE/RESULTS Progress/Plan/Lab Results: Vital Signs - 8 hr 03/15/17 11:32 Temperature 97.9 F Pulse Rate 67 Respiratory Rate 18 Blood Pressure 101/51 O2 Sat by Pulse Oximetry 96 Laboratory Results - last 24 hr 03/15/17 03/15/17 03/15/17 11:49 11:49 11:49 WBC 8.40 RBC 3.93 L Hgb 11.9 L Hct 37.1 MCV 94.4 MCH 30.3 MCHC 32.1 L RDW Std Deviation 14.2 Plt Count 199 MPV 11.3 H Immature Gran % (Auto) 0.2 Neut % (Auto) 72.2 Lymph % (Auto) 17.5 L Ralls % (Auto) 7.1 Eos % (Auto) 2.4 Baso % (Auto) 0.6 Immature Gran # (Auto) 0.02 Neut # (Auto) 6.06 Lymph # (Auto) 1.47 Ralls # (Auto) 0.60 H Eos # (Auto) 0.20 Baso # (Auto) 0.05 PT INR PTT (Actin FS) Sodium 139 Potassium 3.2 L Chloride 95 L Carbon Dioxide 27 Anion Gap 17 BUN 55 H Creatinine 4.0 H Estimated GFR/1.73 m2 11 BUN/Creatinine Ratio 14 Glucose 100 Calculated Osmolality 293 Calcium 9.3 Magnesium 2.6 Total Bilirubin 0.24 AST 21 ALT 12 Alkaline Phosphatase 63 Creatine Kinase 139 Troponin T Vxw-R-Clhkmnjyjrl Pept 551 H Total Protein 7.3 Albumin 4.1 Globulin 3.2 Albumin/Globulin Ratio 1.3 Urine Source Urine Color Urine Turbidity Urine pH Ur Specific [place] Urine Protein Ur Glucose (Stick) Ur Ketones (Stick) Urine Blood Urine Nitrite Urine Bilirubin Urobilinogen Dipstick Urine Leukocytes Urine WBC (Auto) Urine RBC (Auto) U Epithel Cells (Auto) Urine Bacteria (Auto) 03/15/17 03/15/17 03/15/17 11:49 11:49 11:55 WBC RBC Hgb Hct MCV MCH MCHC RDW Std Deviation Plt Count MPV Immature Gran % (Auto) Neut % (Auto) Lymph % (Auto) Ralls % (Auto) Eos % (Auto) Baso % (Auto) Immature Gran # (Auto) Neut # (Auto) Lymph # (Auto) Ralls # (Auto) Eos # (Auto) Baso # (Auto) PT 10.3 INR 0.98 PTT (Actin FS) 24.6 Sodium Potassium Chloride Carbon Dioxide Anion Gap BUN Creatinine Estimated GFR/1.73 m2 BUN/Creatinine Ratio Glucose Calculated Osmolality Calcium Magnesium Total Bilirubin AST ALT Alkaline Phosphatase Creatine Kinase Troponin T < 0.010 Vak-O-Ubumpxevlrg Pept Total Protein Albumin Globulin Albumin/Globulin Ratio Urine Source CLEAN CATCH Urine Color YELLOW Urine Turbidity HAZY Urine pH 6.5 Ur Specific [place] 1.010 Urine Protein 70 A Ur Glucose (Stick) NEGATIVE Ur Ketones (Stick) NEGATIVE Urine Blood MODERATE A Urine Nitrite NEGATIVE Urine Bilirubin NEGATIVE Urobilinogen Dipstick NORMAL Urine Leukocytes NEGATIVE Urine WBC (Auto) <10 Urine RBC (Auto) <10 U Epithel Cells (Auto) >10 A Urine Bacteria (Auto) NEGATIVE Orders Category Date Time Status CBC WITH ELECTRONIC DIFF [HEME] Stat Lab 03/15/17 11:49 Completed CK PROFILE [SP CHEM] Stat Lab 03/15/17 11:49 Completed COMPREHENSIVE METABOLIC PANEL [CHEM] Stat Lab 03/15/17 11:49 Completed MAGNESIUM [CHEM] Stat Lab 03/15/17 11:49 Completed PRO B-NATRIURETIC PEPTIDE Stat Lab 03/15/17 11:49 Completed PROTIME WITH INR [COAG] Stat Lab 03/15/17 11:49 Completed PTT [COAG] Stat Lab 03/15/17 11:49 Completed TROPONIN T Stat Lab 03/15/17 11:49 Completed UA NIMS W/REFLEX CULT [URINALYSIS] Stat Lab 03/15/17 11:55 Completed EKG [EKG] Stat Ther 03/15/17 11:40 Draft Result Diagrams: 03/15/17 11:49 03/15/17 11:49 - REASSESSMENT Reassessment #1 Status: unchanged Departure - Departure Date of Disposition Decision: 03/15/17 Time of Disposition Decision: 14:54 DIAGNOSIS: Acute renal failure superimposed on stage 5 chronic kidney disease, not on chronic dialysis Qualifiers: Acute renal failure type: unspecified Qualified Code(s): N17.9 - Acute kidney failure, unspecified; N18.5 - Chronic kidney disease, stage 5 Disposition: ADMITTED INPATIENT 09 Certified Medical Emergency: Emergent Condition: Stable Additional Freetext Instructions: Spoke to Francia HOP STRAINER- Pt will be admitted under Dr Salians's service Referrals and Follow-Ups: George Roca MD [Primary Care Provider] - - Critical Care Note This patient required my direct & personal management of CC.: No Attestation - Physician/ CAPRICE Attestation Patient care was provided by Advanced Practice Provider:: Yes Advanced Practice Provider documentation review:: The Mid-level provider documentation, treatment plan and medical decision making was reviewed by the physician who agrees with all treatment and medical decision making by the MLP. The physician spent face to face time with patient:: Yes Advanced Practice Provider documentation review:: Supervising physician onsite and consulted in the evaluation and care of this patient. The physician did have a face to face encounter with the patient.
--- NOTE | 2017-03-15 15:53 | Diag Imaging Result Doc PS360 ---
EXAM: CHEST-2 VIEWS INDICATION: r/o pulm edema TECHNIQUE: 2 views COMPARISON: 10/28/2016 FINDINGS: There is minimal subsegmental atelectasis versus scarring projecting over the posterior lung bases on the lateral projection. The lungs are grossly clear, otherwise. There is no discrete pleural fluid collection or pneumothorax. The cardiomediastinal silhouette and central vasculature are grossly unremarkable. IMPRESSION: Minimal basilar atelectasis versus scarring. Electronically signed by Robinson Olmos 03/15/2017 3:51 PM
--- NOTE | 2017-03-15 16:29 | Diag Imaging Result Doc PS360 ---
EXAM: US RENAL 2 (RETROPER) COMPLETE INDICATION: sharona TECHNIQUE: COMPARISON: None. FINDINGS: The kidneys are grossly normal in echotexture with no discrete mass or hydronephrosis. The right kidney measures 10.3 cm and the left kidney measures 10.7 cm in the greatest longitudinal axes. Both renal cortices measure up to 0.9 cm in thickness. Urinary bladder is grossly unremarkable. IMPRESSION: Unremarkable renal ultrasound. Electronically signed by Robinson Olmos 03/15/2017 4:27 PM
[2017-03-15] MEDS: NS 1,000 ML IV SCH (17:50)
[2017-03-15 18:27] LABS: UR CREAT RANDOM 36.2 mg/dL (11-20)
[2017-03-15] MEDS ORDERED: ZOFRAN IV PRN (19:44)
[2017-03-15] MEDS ORDERED: NORCO-7.5 PO PRN (19:44)
[2017-03-15] MEDS ORDERED: TYLENOL PO PRN (19:44)
[2017-03-15 20:32] LABS: ALLEN TEST YES; BE 6.6 mmoll (-3.0-3.0); BLOOD TYPE ARTERIAL; DRAW SITE R RADIAL; METHB 1.1 % (0.0-1.5); MODALITY ROOM AIR; O2(CT) 15.9 mL/dL (15.0-23.0); PCO2(98.6) 44 mmHg (35-45); PO2(98.6) 61 mmHg (60-100); SAMPLE BLOOD; SAO2 95.3 % (95.0-100.0); THB 12.2 g/dL (11.5-17.4); pH(98.6) 7.46 (7.35-7.45)
--- NOTE | 2017-03-15 20:49 | HISTORY AND PHYSICAL ---
PRIMARY CARE PROVIDER: George Roca MD. CHIEF COMPLAINT: Elevated creatinine. HISTORY OF PRESENT ILLNESS: Ms. Sujata Blount is a 67-year-old morbidly obese, female, whose medical history is obstructive sleep apnea and will not wear her CPAP, hypertension, neck pain, osteoarthritis, polymyalgia rheumatica, AVR, lumbar disc herniation, who states that she had some preop labs obtained prior to having her right carpal tunnel repair which revealed an elevated creatinine, this was 1 week ago. The surgeon's nurse called her and told her to go see her primary, Dr. Roca, secondary to the elevated creatinine. She presented to Dr. Roca's office yesterday and had lab work drawn, and the BUN and creatinine was once again elevated at 52 and 3.9. She presents now with 55 and 4.0. He called her and told her to come for evaluation in the ER. About 2 weeks ago she was diagnosed with a urinary tract infection and was started originally on Macrodantin and then changed to Levaquin. She completed her antibiotics for that. She also took Lasix but this was stopped at one point in time and does have hydrochlorothiazide as another medication. Harmful renal medications could be her Mobic that she takes and possibly Robaxin. It also appears that she is taking possibly a double dose of hydrochlorothiazide. She takes Hyzaar and triamterene-hydrochlorothiazide. Other symptoms she has is dry skin, fatigue, urine is dark. She states that she has had lower extremity swelling for a year and that is why she takes diuretics. We will admit her to the medical floor and start her on IV fluid hydration, follow up with a renal ultrasound, do some urine studies and consult Nephrology. PAST MEDICAL HISTORY: Obstructive sleep apnea but does not wear CPAP, hypertension, neck pain, osteoarthritis, polymyalgia rheumatica that she takes chronic steroid therapy for, aortic valve regurgitation, lumbar disc herniation. PAST SURGICAL HISTORY: She has had cervical fusion x2, lumbar fusion x1, carpal tunnel bilaterally with the right most recently, tubal ligation, cataract surgery. SOCIAL HISTORY: Quit smoking 21 years ago but prior to that smoked half-pack per day for 20 years. Drinks a glass of red wine about once or twice every 2 weeks. Denies illicit drug use. She is and has 3 grown children. FAMILY HISTORY: Her mother and father both had heart disease and high blood pressure. Her brother had heart disease and required a permanent pacemaker. REVIEW OF SYSTEMS: Fourteen point review of systems were complete and all were negative except for those mentioned above in HPI. She did state that she also has a bad right knee and was wanting to get it looked at. Possibly schedule as outpatient. ALLERGIES: Cephalexin, monohydrate. HOME MEDICATIONS: Aspirin 81 mg p.o. daily; Celexa 40 mg p.o. daily; Neurontin 600 mg p.o. twice daily; [place] 7.5, 1 tab p.o. every 8 hours p.r.n.; Hyzaar 100-25, 1 tab p.o. daily; meloxicam 7.5 mg p.o. twice daily; Robaxin 750 mg p.o. twice daily; Toprol-XL 100 mg p.o. daily; Procardia 60 mg p.o. daily; Diastat 100,000 units p.o. daily; Mirapex 0.125 p.o. twice daily; prednisone 7.5 mg p.o. daily; Rosuvastatin 20 mg p.o. nightly; triamterene/hydrochlorothiazide 37.5/25 mg p.o. daily. PHYSICAL EXAMINATION: VITAL SIGNS: Temperature 97.9 degrees, heart rate 67, respiratory rate 18, blood pressure 101/51, O2 saturation is 96% on room air. 5 feet 2 inches tall, 198 pounds. BMI 36.2. GENERAL: Ms. Sujata Blount is a 67-year-old, female. She is in no acute distress. She is able to answer questions appropriately. HEENT: Atraumatic, normocephalic. Pupils equal, round, reactive to light. Extraocular movements are intact. Mucous membranes are dry. NECK: No JVD or carotid bruits noted. CARDIOVASCULAR: S1, S2. Regular rate and rhythm. No rubs, gallops, or murmurs. PULMONARY: Clear to auscultation. Bilateral breath sounds. No accessory muscle use or work of breathing noted. GASTROINTESTINAL: Soft, nontender, nondistended, obese, positive bowel sounds x4. EXTREMITIES: Trace lower extremity edema about +1, she has +2 dorsalis pedal and radial pulses. NEUROLOGIC: Alert and oriented x4. Moves all extremities equally. SKIN: Warm, dry, intact. LABORATORY DATA: White blood cells 8000, hemoglobin 11, hematocrit 37, platelet count 199,000, INR 0.98, PTT is 24.6. Sodium 139, potassium 3.2, BUN 55, creatinine 4.0, GFR is 11, glucose 100, calcium 9.3, magnesium 2.6, bilirubin 0.24. AST 21, ALT 12, CK 139, troponins less than 0.01, proBNP is 551, albumin 4.1. Urinalysis: 70 protein, moderate blood, otherwise negative. IMAGING: EKG at 11:40: Normal sinus rhythm, rate 63, QTc is 462. Renal ultrasound is unremarkable. Chest x-ray: Minimal basilar atelectasis versus scarring. ASSESSMENT AND PLAN: 1. Acute kidney injury. Stop all nephrotoxic medications. We will do IV fluid hydration. Renal ultrasound was unremarkable. Follow up with urinalysis and urine studies, and consult Dr. Bender for further recommendations. 2. Obstructive sleep apnea that is untreated. This could add to issues like kidney failure and hypertension. These will likely need to be re-evaluated as an outpatient. 3. Hypertension. We will continue only Toprol for now. 4. Polymyalgia rheumatica. We will continue steroid therapy. 5. Deep venous thrombosis prophylaxis. Heparin q.12 hours. 6. Gastrointestinal prophylaxis. Proton pump inhibitor. Dictated by ALESSANDRO Leahy for Jt Cook MD cc: ALESSANDRO Leahy MD Michael C. Donham, MD
[2017-03-15] MEDS: MIRAPEX PO SCH (23:12)
[2017-03-15] MEDS: HEPARIN SUBQ SCH (23:12)
[2017-03-15] MEDS: NEURONTIN PO SCH (23:13)
[2017-03-16] MEDS: NS 1,000 ML IV SCH ×4 (03:40→17:52)
[2017-03-16 05:57] LABS: MANUAL DIFF NEEDED? NO
[2017-03-16 06:00] LABS: BASO% 0.6 % (0.0-0.8); EOS# 0.41 X1000 (0.0-0.7); EOS% 6.1 % (0.0-10.0); HEMATOCRIT 33.4 % (37.0-47.0); HEMOGLOBIN 10.6 g/dL (12.0-16.0); LYMPH# 2.18 X1000 (1.2-3.4); LYMPH% 32.3 % (20.5-51.1); MCH 30.2 PG (27-31); MCHC 31.7 g/dL (33-37); MCV 95.2 FL (81-99); MONO# 0.69 X1000 (0.11-0.59); MONO% 10.2 % (1.7-9.3); MPV 11.2 FL (7.4-10.4); NEUT% 50.8 % (42.2-75.2); PLT 181 X1000 (130-400); RBC 3.51 XMIL (4.2-5.4)
[2017-03-16 06:11] LABS: INR 1.01; PROTIME 10.6 Seconds (9.2-11.7); PTT 25.2 Seconds (22.0-36.0)
[2017-03-16 06:26] LABS: ALBUMIN 3.1 g/dL (3.5-5.0); CALCIUM 8.5 mg/dL (8.8-10.2); MAGNESIUM 2.4 mg/dL (1.5-2.7); POTASSIUM 2.8 mmol/L (3.5-5.1); TOTAL BILIRUBIN 0.16 mg/dL (0.20-1.00); TOTAL PROTEIN 5.7 g/dL (6.3-8.3)
[2017-03-16] MEDS: MIRAPEX PO SCH ×2 (08:59→23:32)
[2017-03-16] MEDS ORDERED: PROCARDIA ER PO SCH (09:00)
[2017-03-16] MEDS ORDERED: MYCOSTATIN SUSP PO PRN (09:00)
[2017-03-16] MEDS: NEURONTIN PO SCH ×2 (09:00→23:32)
[2017-03-16] MEDS ORDERED: TOPROL XL PO SCH (09:00)
[2017-03-16] MEDS: PREDNISONE PO SCH (09:00)
[2017-03-16] MEDS: ASPIRIN EC PO SCH (09:00)
[2017-03-16] MEDS: HEPARIN SUBQ SCH ×2 (09:01→23:32)
--- NOTE | 2017-03-16 11:14 | PROGRESS NOTE ---
DATE: 03/16/2017 SUBJECTIVE: Patient reports feeling fine. Reports some mild pain in the hands, on the back that patient attributes to his chronic osteoarthritis. OBJECTIVE: Vital Signs: Temperature 98.8 degrees, heart rate 62, respiratory rate 16, blood pressure 93/51 and O2 saturation 94% on room air. General examination: This is a 67-year-old female, lying in bed in no acute distress. HEENT: Head is normocephalic, atraumatic. Anicteric sclerae and pale conjunctivae. Mucous membranes are moist. Neck: Supple. No JVD noted. No carotid bruits. No lymphadenopathy. No thyromegaly. Cardiovascular exam: S1, S2 heard. No murmurs, gallops, or rubs. Regular rate and rhythm. Respiratory exam: Clear bilaterally to auscultation. No work of breathing or using accessory muscles. Abdomen: Soft, nontender to palpation. Bowel sounds present. No organomegaly. Extremities: No clubbing or cyanosis and edema 1+ over both lower extremities. Peripheral pulses present in both legs. Neurological exam: Patient alert and oriented x3. Moves 4 extremities. LABORATORY DATA: The CBC is unremarkable, except mild anemia at 10.6 and potassium 2.8 and creatinine 2.9. ASSESSMENT AND PLAN: 1. Acute kidney injury. That condition is improving. Yesterday, the creatinine was 5.0 and today is 2.9. Patient has been started on intravenous fluids and all nephrotoxic medications have been stopped including Meloxicam, which this patient was taking for about a year and also losartan. Renal ultrasound was ordered at admission and was unremarkable. Dr. Bender from nephrology has been consulted; we will follow his recommendations. 2. Obstructive sleep apnea, aware. 3. Hypertension. Because the blood pressure is borderline low, we prefer to hold all blood pressure medications. 4. Polymyalgia rheumatica. Will continue with the prednisone 7.5 oral daily. 5. Deep vein thrombosis prophylaxis with heparin. 6. Gastrointestinal prophylaxis with Protonix. cc: Jt Cook MD
[2017-03-16] MEDS: POTASSIUM CHLORIDE 60 MEQ in NS 500 ML IV SCH ×2 (12:58→23:31)
--- NOTE | 2017-03-16 13:59 | CONSULTATION ---
DATE OF CONSULTATION: 03/16/2017 REASON FOR CONSULTATION: Acute kidney injury. HISTORY OF PRESENT ILLNESS: Ms. Blount is a 67-year-old, white female with multiple medical problems including hypertension, diabetes, obstructive sleep apnea, history of PMR on chronic steroids. She has aortic valve disease as well. She had surgery less than 1 week ago for right carpal tunnel syndrome by Dr. Ku in [place]. She states she really was not eating all that well, even at that time, and attributes this to a urinary tract infection that she has been experiencing for a couple weeks. She was treated first with Macrodantin and then with Levaquin. Following surgery, she continued to have a low appetite and occasional nausea, but no vomiting and no diarrhea. No chills, fever, sweats, night sweats, etc. She had progressive weakness and perhaps orthostasis, so she sought attention with Dr. Roca. She was weak and pale and he luz labs on her, and then called her and asked her to come to the hospital because her creatinine was 3.9. The admission H and P says that her creatinine was abnormal prior to her surgery as well. I do not have access to those data. Baseline creatinine was 1.1 as of October of this year. Since admission she has been treated with IV fluid resuscitation. She has a Schilling catheter in place and she has undergone a renal ultrasound which demonstrated normal size kidneys and no obstruction. Her urine output has been excellent with 1.4 L total urine output as of 8 a.m. Her losartan and hydrochlorothiazide have been withheld. PAST MEDICAL HISTORY: As above. HOME MEDICATIONS: 1. Aspirin. 2. Celexa. 3. Neurontin. 4. [place]. 5. Hyzaar. 6. Meloxicam. 7. Robaxin. 8. Toprol. 9. Procardia. 10. Diastat. 11. Mirapex. 12. Prednisone. 13. Rosuvastatin. 14. Triamterene/hydrochlorothiazide. ALLERGIES: Cephalexin. SOCIAL HISTORY: Former smoker. Occasional alcohol. She is and lives with her . FAMILY HISTORY: Noncontributory. REVIEW OF SYSTEMS: Otherwise negative, except for musculoskeletal complaints and thrush. PHYSICAL EXAMINATION: Vital Signs: Blood pressure 90/48, heart rate 70, respiration 18, afebrile. General: She is an obese woman in no acute distress. Skin: Warm and dry. Eyes: Conjunctivae are pink and moist. Pupils are equal. No corneal arcus. ENT: Oropharynx is clear. Tongue is beefy, but no plaques. Normal dentition. Neck: Supple. Trachea is midline. Jugular venous wave is not distended. Heart: Regular. I did not discern a murmur. No gallops. Lungs: Have equal breath sounds. No crackles or wheezes. No accessory muscle use or retractions. Abdomen: Obese and soft. Bowel sounds are present. No organomegaly or masses or bruits. Extremities: Have no edema, clubbing, or cyanosis. Intact distal pulses. Neurologic Exam: Grossly nonfocal. IMPRESSION: Acute kidney injury. Creatinine is improving promptly with the withdrawal of her nonsteroidal anti-inflammatory drug and her diuretic and her Cozaar. I would recommend withholding all those medicines for maybe 2-3 weeks until her other symptoms are improved. Her other blood pressure medications are appropriately on hold as well. I expect her to have progressive improvement in her renal function as her volume resuscitation proceeds. She has potassium chloride in her intravenous fluids and this appropriate for addressing her hypokalemia. cc: Miguel A Bender MD
[2017-03-17] MEDS: NS 1,000 ML IV SCH ×2 (01:16→09:03)
[2017-03-17] MEDS: MIRAPEX PO SCH ×2 (09:01→19:53)
[2017-03-17] MEDS: NEURONTIN PO SCH ×2 (09:01→19:53)
[2017-03-17] MEDS: PREDNISONE PO SCH (09:02)
[2017-03-17] MEDS: ASPIRIN EC PO SCH (09:03)
[2017-03-17] MEDS: HEPARIN SUBQ SCH ×2 (09:03→19:53)
[2017-03-17 10:03] LABS: MANUAL DIFF NEEDED? NO
[2017-03-17 10:14] LABS: BASO% 0.9 % (0.0-0.8); EOS# 0.35 X1000 (0.0-0.7); EOS% 4.7 % (0.0-10.0); HEMATOCRIT 33.7 % (37.0-47.0); HEMOGLOBIN 10.6 g/dL (12.0-16.0); IMM GRAN# 0.02 X1000 (0.0-0.04); IMM GRAN% 0.3 % (0.0-0.5); LYMPH# 2.53 X1000 (1.2-3.4); LYMPH% 34.3 % (20.5-51.1); MCH 30.1 PG (27-31); MCHC 31.5 g/dL (33-37); MCV 95.7 FL (81-99); MONO# 0.65 X1000 (0.11-0.59); MONO% 8.8 % (1.7-9.3); MPV 10.7 FL (7.4-10.4); PLT 186 X1000 (130-400); RBC 3.52 XMIL (4.2-5.4)
[2017-03-17 10:32] LABS: ALBUMIN 3.2 g/dL (3.5-5.0); CALCIUM 8.8 mg/dL (8.8-10.2); POTASSIUM 3.1 mmol/L (3.5-5.1)
[2017-03-17 10:34] LABS: CALCIUM 8.7 mg/dL (8.8-10.2); POTASSIUM 3.2 mmol/L (3.5-5.1)
[2017-03-17] MEDS ORDERED: POTASSIUM CHLORIDE 60 MEQ in NS 500 ML IV ONE (12:00)
--- NOTE | 2017-03-17 13:30 | PROGRESS NOTE ---
DATE: 03/17/2017 SUBJECTIVE: Patient reports feeling fine. Mild pain in both hands, on the back. Denies fevers or chills. OBJECTIVE: Vital Signs: Temperature 98.7 degrees, heart rate 96, respiratory rate 18, blood pressure 130/57, O2 saturation 96% on room air. General: This is a 67-year-old female lying in bed, in no acute distress. HEENT: Head is normocephalic, atraumatic. Anicteric sclerae, pale conjunctivae. Mucous membranes dry. Neck: Supple. No JVD noted. No carotid bruits. No lymphadenopathy. No thyromegaly. Cardiovascular: S1, S2 heard. No murmurs, gallops, or rubs. Regular rate and rhythm. Respiratory: Clear bilaterally to auscultation. No work of breathing or using accessory muscles. Abdomen: Soft. Nontender to palpation. Bowel sounds present. No organomegaly. Extremities: No clubbing, cyanosis, or edema. Peripheral pulses present in both legs. Neurological: Patient is alert and oriented x3. Moves 4 extremities. LABORATORY DATA: White cell count 7.38, hemoglobin 10.6, hematocrit 33.7, platelets 186,000. Sodium 148, potassium 3.2, chloride 106, bicarbonate 28, creatinine is 2.0, BUN 29. ASSESSMENT AND PLAN: 1. Acute on chronic kidney disease. This condition continues to improve. Creatinine has improved from 2.9 yesterday to 2.0 today. We will continue with IV fluids and continue holding all nephrotoxic medication including meloxicam. Dr. Bender has evaluated this patient. 2. Obstructive sleep apnea. Aware. 3. Hypertension. Blood pressure is in the range of 110-130 so we will continue to hold all blood pressure medications. 4. Polymyalgia rheumatic. We will continue with prednisone of 7.5 mg daily. 5. Deep vein thrombosis prophylaxis with heparin. 6. Gastrointestinal prophylaxis with Protonix. cc: Jt Cook MD
[2017-03-17] MEDS: CRESTOR PO SCH (19:53)
[2017-03-18] MEDS: NS 1,000 ML IV SCH ×2 (00:08→02:39)
[2017-03-18] MEDS: CRESTOR PO SCH (00:08)
[2017-03-18] MEDS: HEPARIN SUBQ SCH ×2 (00:08→08:06)
[2017-03-18] MEDS: NEURONTIN PO SCH ×2 (00:09→08:06)
[2017-03-18] MEDS: MIRAPEX PO SCH ×2 (00:09→08:07)
[2017-03-18 05:36] LABS: MANUAL DIFF NEEDED? NO
[2017-03-18 05:52] LABS: BASO% 0.6 % (0.0-0.8); EOS# 0.32 X1000 (0.0-0.7); EOS% 4.1 % (0.0-10.0); HEMATOCRIT 32.4 % (37.0-47.0); HEMOGLOBIN 10.3 g/dL (12.0-16.0); LYMPH% 35.6 % (20.5-51.1); MCH 30.3 PG (27-31); MCHC 31.8 g/dL (33-37); MCV 95.3 FL (81-99); MONO# 0.68 X1000 (0.11-0.59); MONO% 8.7 % (1.7-9.3); PLT 184 X1000 (130-400)
[2017-03-18 06:01] LABS: ALBUMIN 3.2 g/dL (3.5-5.0); CALCIUM 8.1 mg/dL (8.8-10.2); POTASSIUM 3.2 mmol/L (3.5-5.1)
[2017-03-18] MEDS ORDERED: KLOR-CON PO ONE (07:18)
--- NOTE | 2017-03-18 07:19 | EKG Report ---
Test Performed on : 03/16/2017 06:44:34 AM Test Reason : chest pain Blood Pressure : / mmHG Vent. Rate : 062 BPM Atrial Rate : 062 BPM P-R Int : 174 ms QRS Dur : 090 ms QT Int : 442 ms P-R-T Axes : 093 -13 028 degrees QTc Int : 448 ms Normal sinus rhythm. Normal ECG When compared with ECG of 15-MAR-2017 11:57, (Unconfirmed) Nonspecific ST and T wave abnormality precordial leads Confirmed by Ryan Schmitt DO ([id number]) on 03/18/2017 6:20:20 PM
[2017-03-18 07:40] VITALS: BP 130/71
[2017-03-18] MEDS: ASPIRIN EC PO SCH (08:07)
[2017-03-18] MEDS: PREDNISONE PO SCH (08:07)
[2017-03-18] MEDS ORDERED: CELEXA PO SCH (09:00)
--- NOTE | 2017-03-18 13:33 | PROGRESS NOTE ---
DATE: 03/18/2017 DATE SEEN: 03/18/2017 TIME SEEN: 08:35 SUBJECTIVE: Ms. Blount is resting quietly in bed. She states that she hopes to go home today. She denies any chest pain or increased work of breathing. OBJECTIVE: Vital Signs: Her most recent vital signs are temperature 98.1 degrees blood pressure 135/68, heart rate 57, respirations 16. She is on room air. Last recorded saturation 96%. She has had 2520 in, 2100 out per Schilling catheter. LABORATORY DATA: Sodium 143, potassium 3.2, chloride 107. CO2 26, BUN 26, creatinine 1.8. Glucose 75. Anion gap 10, calcium 8.1, phosphorus 2.7, albumin 3.2. White count 7.86. Hemoglobin 10.3, hematocrit 32.4, with a platelet count of 184,000. PHYSICAL EXAMINATION: General: This is a 67-year-old white female. She is currently resting in bed. She is in no acute distress. Skin: Warm and dry. HEENT: Normocephalic , atraumatic. Conjunctiva is pale. She has MARITA. Mucous membranes moist. Neck: Supple. Trachea midline. No jugular venous distention. Cardiovascular: Regular rate and rhythm. She is without murmur or gallop. Lungs: Clear to auscultation anteriorly. Equal excursion on room air. Abdomen: Large, round, soft, and nontender. Positive bowel sounds. Genitourinary: Schilling catheter is in place. Not inspected. Adequate urine out. Extremities: No edema. No clubbing or cyanosis. Neurological: Alert and oriented x3. ASSESSMENT AND PLAN: 1. Acute kidney injury. Patient's baseline creatinine is unknown. She has responded nicely to IV fluids of normal saline at 125 mL an hour. BUN and creatinine are down to 26 and 1.8, respectively. The patient states that she would like to go home. We had indicated that she is to go home without her losartan. We will follow up in 2-3 weeks after her discharge and possibly start her losartan back at that time for her kidney protection and blood pressure support. No indications for intervention. 2. Electrolytes. Patient has mild hypokalemia. Requires probably 1 dose of potassium prior to discharge. 3. Acid-base balance. This is stable. 4. Anemia. This is low, but stable. I would like to thank you for allowing us to follow with this patient. Dictated by ALESSANDRO Aquino for Miguel A Bender MD Patient seen, data reviewed, discussed with Kristi Canales on 03/18/17. I agree with the above assessment and plan of care. cc: ALESSANDRO Aquino MD [facility]
--- NOTE | 2017-03-19 06:52 | DISCHARGE SUMMARY ---
ADMISSION DATE: 03/15/2017 DISCHARGE DATE: 03/18/2017 CONSULTATIONS: Dr. Bender with Nephrology OPERATIVE PROCEDURES: Renal ultrasound was unremarkable. DISCHARGE DIAGNOSES: 1. [id number] kidney disease. Improved with IV fluids. Patient will follow up with her PCP with a BMP in 1 week. 2. Obstructive sleep apnea. Aware. 3. Hypertension. Blood pressure medications are being held secondary to acute kidney injury as well, blood pressures being between 110 and 130. She will follow up with her PCP, to see when she can re-initiate those, stable. 4. Polymyalgia rheumatica. Continue prednisone 7.5 mg daily. HOSPITAL COURSE: Ms. Blount is a 67-year-old morbidly obese, female with past medical history of obstructive sleep apnea. She does not wear her CPAP, hypertension, neck pain, osteoarthritis, polymyalgia rheumatica, AVR, lumbar disk herniation. She had preop labs obtained prior to having her right carpal tunnel repair, which revealed an elevated creatinine 1 week ago. The surgeon's nurse called and told her to see her PCP, Dr. Roca, secondary to her elevated creatinine. She presented to his office. Had lab work drawn. Her BUN and creatinine was once again elevated at 52 and 3.9. It is now 55 and 4.0. She was told to come to the ED. Two weeks ago, she was diagnosed with a UTI and started on Macrodantin and changed to Levaquin. She completed her antibiotics for that. She was also taking Lasix but stopped at one point, as well as hydrochlorothiazide and other medications, harmful renal medications, as well as her Mobic and Robaxin. She also reported dry skin, fatigue, and dark urine. She also reported lower extremity swelling for over a year, that is why she takes diuretics. She was admitted to the medical floor. Started on IV fluid hydration. She had a normal renal ultrasound and a Nephrology consult. Her creatinine improved promptly with the withdrawal of her NSAIDs, as well as diuretic and her Cozaar. Dr. Bender recommends withholding these medicines for maybe 2-3 weeks until her other symptoms are improved. On the day of discharge, her BUN and creatinine is at 26 and 1.88. She will follow up with Dr. Roca in 1 week with a follow-up BMP. She will hold her blood pressure medications as well as NSAIDs until that time. VITAL SIGNS: Temperature is 98.5 degrees, heart rate 90. Respirations 16, blood pressure 130/71, O2 is 96% on room air. DISCHARGE DIET: Regular. DISCHARGE MEDICATIONS: As per Dr. Salinas: 1. Aspirin 81 mg p.o. daily. 2. Celexa 40 mg p.o. daily. 3. Neurontin 600 mg p.o. b.i.d. 4. [place] 7.5/325 one each p.o. q.8 hours. 5. Robaxin 750 mg p.o. b.i.d. 6. Nystatin. 7. Mirapex 0.125 mg p.o. b.i.d. 8. Prednisone 7.5 mg p.o. daily. 9. Crestor 20 mg p.o. at bedtime. DISCHARGE INSTRUCTIONS: Ms. Blount being discharged home to follow up with Dr. Roca in 1 week with a follow-up BMP. She is return to the ED for any worsening of symptoms. DISCHARGE TIME: Thirty three minutes. Dictated by ALESSANDRO Zepeda for Jt Cook MD cc: Jt Cook MD [facility]
== END 2017-03-18 11:35 | disposition home or self-care (01) ==
LOC: ED 11:00 → 4N 11:01
PROVIDERS: ATTEND Internal Medicine